=== PATIENT | female | born 1950 | race Caucasian/White ===

== ENCOUNTER 2017-08-16 13:43 | Emergency (ER) | payer MEDICARE, OTHER ==
[2017-08-16] MEDS ORDERED: Aspirin 81 MG Tab.Chew PO ONE (13:59)
[2017-08-16] MEDS ORDERED: Nitroglycerin 0.4 MG Tab.SL SL ONE (14:00)
--- NOTE | 2017-08-16 14:21 | EDM.PDOC ---
ED HPI GENERAL MEDICAL PROBLEM - General Stated Complaint: CHEST PAIN Time Seen by Provider: 08/16/17 13:45 Source of Information: Reports: Patient History Limitations: Reports: No Limitations - History of Present Illness INITIAL COMMENTS - FREE TEXT/NARRATIVE: c/o SSCP very poor historian, most questions needed to be asked 2-3 times, pt would often still not answer the question or give an indifferent, indirect or evasive answer pt reports she has had CP that she calls "angina" 2x/m x 1y, she had a stent of RCA 05/05, last saw creative art therapist 3m ago at time of stent, last saw PCP Dayanara Vasquez 2m ago, has apt with another creative art therapist in 2m had mid substernal ache in chest for 1h last night prior to going to bed, says she has NTG in her pocket but has never taken any, had no CP when she awoke at 04:30, did have some vague nonspecific mid SSCP on arrival at cardiac rehab today, got worse after 15 min, pain up to 8/10 "a big boy", now 2-08/26, did not get NTG at rehab, has L eye pain but denies other sxs, no n/v, no f/c/d goes to CV rehab for 45 min 2x/wk, not previously had pain this intense cath report 07-15-16 from [facility] shows 80% stenosis dominant RCA with nonobstructive disease in Cx and LAD, balloon angioplasty and stent done of RCA also with L renal artery stenosis with gradient of "only about 10 or 15 mm" which Dr Sinclair thought could be managed conservatively also a 3-3.5 cm distal AAA also 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 states she smoked 2 ppd x 30y, now smokes 6 cigs/d lives alone CV rehab report from today indicates 1/10 midsternal ache that started last night and comes and goes, resolved with exercise on stationary bike, pt started on Biostep and then had 6/10 sharp midsternal CP after 19 minutes, dec'd to 3/ 10 with rest, BP 126/58, pt then sent to ED EKG here shows SR 83, borderline QTc 503 that is old, no acute ST changes, no strain, no hypertrophy CxR, 1 view, was unremarkable, no infiltrates or effusions, normal inflation despite 60 pack yrs smoking mid chest Pain Score (Numeric/FACES): 2 - Related Data Allergies Allergy/AdvReac Type Severity Reaction Status Date / Time Penicillins Allergy Severe Chest Verified 08/16/17 14:06 Presssure morphine Allergy Bronchospas Verified 08/16/17 14:06 ms Home Meds: Home Meds Aspirin 81 mg PO DAILY 08/16/17 [History] Carvedilol 6.25 mg PO BID 08/16/17 [History] Clopidogrel [Plavix] 75 mg PO DAILY 08/16/17 [History] Cyanocobalamin (Vitamin B-12) [B-12] 500 mcg PO DAILY 08/16/17 [History] Isosorbide Mononitrate [Isosorbide Mononitrate ER] 30 mg PO DAILY #30 tab.sr.24h 08/16/17 [Rx] Nitroglycerin 0.4 mg SL ASDIRECTED PRN 08/16/17 [History] amLODIPine Besylate [Amlodipine Besylate] 10 mg PO DAILY 08/16/17 [History] atorvaSTATin [Lipitor] 80 mg PO BEDTIME 08/16/17 [History] ED ROS GENERAL - Review of Systems Review Of Systems: See Below Constitutional: Reports: No Symptoms HEENT: Reports: No Symptoms Respiratory: Reports: No Symptoms. Denies: Shortness of Breath Cardiovascular: Reports: Chest Pain. Denies: Edema, Lightheadedness Endocrine: Reports: No Symptoms GI/Abdominal: Reports: No Symptoms. Denies: Nausea, Vomiting : Reports: No Symptoms Musculoskeletal: Reports: No Symptoms Skin: Reports: No Symptoms Neurological: Reports: No Symptoms Psychiatric: Reports: No Symptoms Hematologic/Lymphatic: Reports: No Symptoms Immunologic: Reports: No Symptoms ED EXAM, GENERAL - Physical Exam Exam: See Below Exam Limited By: No Limitations General Appearance: Alert, WD/WN, No Apparent Distress, Other (alert, somewhat morose although pleasant enough, NAD, nonill, shook my hand) Eye Exam: Bilateral Eye: Normal Inspection Ears: Normal External Exam Nose: Normal Inspection, Normal Mucosa, No Blood Throat/Mouth: Normal Inspection, Normal Lips, Normal Teeth, Normal Gums, Normal Oropharynx, Normal Voice, No Airway Compromise Head: Atraumatic, Normocephalic Neck: Normal Inspection, Supple, Non-Tender, Full Range of Motion. No: Carotid Bruit, Lymphadenopathy (R), Lymphadenopathy (L) Respiratory/Chest: No Respiratory Distress, Lungs Clear, Normal Breath Sounds, No Accessory Muscle Use, Chest Non-Tender Cardiovascular: Regular Rate, Rhythm, No Edema, No Gallop, No JVD, No Murmur, No Rub, Other (distant, no murmur appreciated, quiet precordium) GI/Abdominal: Normal Bowel Sounds, Soft, Non-Tender, No Organomegaly, No Distention, No Abnormal Bruit, No Mass Back Exam: Normal Inspection Extremities: Normal Inspection, Normal Range of Motion, Non-Tender, No Pedal Edema, Normal Capillary Refill, Other (no edema, nl turgor) Neurological: Alert, Oriented, CN II-XII Intact, Normal Cognition, No Motor/ Sensory Deficits Skin Exam: Warm, Dry, Intact, Normal Color, No Rash Lymphatic: No Adenopathy Course - Vital Signs Last Recorded V/S: Last Vital Signs Temp 36.7 C 08/16/17 13:45 Pulse 90 08/16/17 13:45 Resp 16 08/16/17 13:45 BP 135/76 08/16/17 14:08 Pulse Ox 96 08/16/17 13:45 - Orders/Labs/Meds Orders: Active Orders 24 hr Category Date Time Status Ang Chest [CT] Stat Exams 08/16/17 14:56 Taken Chest 1V Frontal [CR] Stat Exams 08/16/17 14:04 Ordered Sodium Chloride 0.9% [Saline Flush] Med 08/16/17 15:07 Active 10 ml FLUSH ASDIRECTED PRN Saline Lock Insert [OM.PC] Routine Oth 08/16/17 15:07 Ordered EKG 12 Lead [EK] Routine Ther 08/16/17 14:04 Ordered Medication Orders Sodium Chloride (Saline Flush) 10 ml FLUSH ASDIRECTED PRN PRN Reason: Keep Vein Open Last Admin: 08/16/17 15:10 Dose: 10 ml Labs: Laboratory Tests 08/16/17 08/16/17 08/16/17 Range/Units 14:15 14:15 14:15 WBC 6.3 (4.5-12.0) X10-3/uL RBC 4.25 (3.23-5.20) x10(6)uL Hgb 12.6 (11.5-15.5) g/dL Hct 37.7 (30.0-51.3) % MCV 88.5 (80-96) fL MCH 29.6 (27.7-33.6) pg MCHC 33.4 (32.2-35.4) g/dL RDW 12.7 (11.5-15.5) % Plt Count 251 (125-369) X10(3)uL MPV 8.8 (7.4-10.4) fL Neut % (Auto) 55.6 (46-82) % Lymph % (Auto) 36.7 (13-37) % [place] % (Auto) 4.9 (4-12) % Eos % (Auto) 2 (1.0-5.0) % Baso % (Auto) 1 (0-2) % Neut # (Auto) 3.6 (1.6-8.3) # Lymph # (Auto) 2.3 (0.6-5.0) # [place] # (Auto) 0.3 (0.0-1.3) # Eos # (Auto) 0.1 (0.0-0.8) # Baso # (Auto) 0.0 (0.0-0.2) # D-Dimer, Quantitative 667 H (100-400) ng/mL Sodium 145 (135-145) mmol/L Potassium 3.6 (3.5-5.3) mmol/L Chloride 107 (100-110) mmol/L Carbon Dioxide 27 (21-32) mmol/L BUN 12 (7-18) mg/dL Creatinine 0.8 (0.55-1.02) mg/dL Est Cr Clr Drug Dosing 53.23 mL/min Estimated GFR (MDRD) > 60 (>60) BUN/Creatinine Ratio 15.0 (9-20) Glucose 103 (80-116) mg/dL Calcium 9.1 (8.6-10.2) mg/dL Magnesium 1.9 (1.8-2.5) mg/dL Total Bilirubin 0.4 (0.1-1.3) mg/dL AST 18 (5-25) IU/L ALT 26 (12-36) U/L Alkaline Phosphatase 80 (56-112) IU/L Troponin I (<0.017-0.056) ng/mL C-Reactive Protein (0.5-0.9) mg/dL NT-Pro-B Natriuret Pep (<=125) pg/mL Total Protein 7.3 (6.0-8.0) g/dL Albumin 3.6 (3.2-4.6) g/dL Globulin 3.7 g/dL Albumin/Globulin Ratio 1.0 / Range/Units 14:15 WBC (4.5-12.0) X10-3/uL RBC (3.23-5.20) x10(6)uL Hgb (11.5-15.5) g/dL Hct (30.0-51.3) % MCV (80-96) fL MCH (27.7-33.6) pg MCHC (32.2-35.4) g/dL RDW (11.5-15.5) % Plt Count (125-369) X10(3)uL MPV (7.4-10.4) fL Neut % (Auto) (46-82) % Lymph % (Auto) (13-37) % [place] % (Auto) (4-12) % Eos % (Auto) (1.0-5.0) % Baso % (Auto) (0-2) % Neut # (Auto) (1.6-8.3) # Lymph # (Auto) (0.6-5.0) # [place] # (Auto) (0.0-1.3) # Eos # (Auto) (0.0-0.8) # Baso # (Auto) (0.0-0.2) # D-Dimer, Quantitative (100-400) ng/mL Sodium (135-145) mmol/L Potassium (3.5-5.3) mmol/L Chloride (100-110) mmol/L Carbon Dioxide (21-32) mmol/L BUN (7-18) mg/dL Creatinine (0.55-1.02) mg/dL Est Cr Clr Drug Dosing mL/min Estimated GFR (MDRD) (>60) BUN/Creatinine Ratio (9-20) Glucose (80-116) mg/dL Calcium (8.6-10.2) mg/dL Magnesium (1.8-2.5) mg/dL Total Bilirubin (0.1-1.3) mg/dL AST (5-25) IU/L ALT (12-36) U/L Alkaline Phosphatase (56-112) IU/L Troponin I < 0.017 L (<0.017-0.056) ng/mL C-Reactive Protein < 0.2 L (0.5-0.9) mg/dL NT-Pro-B Natriuret Pep 124 (<=125) pg/mL Total Protein (6.0-8.0) g/dL Albumin (3.2-4.6) g/dL Globulin g/dL Albumin/Globulin Ratio Meds: Medications Generic Name Dose Route Start Last Admin Trade Name Freq PRN Reason Stop Dose Admin Sodium Chloride 10 ml 08/16/17 15:07 08/16/17 15:10 Saline Flush FLUSH 10 ml ASDIRECTED PRN Administration Keep Vein Open Discontinued Medications Generic Name Dose Route Start Last Admin Trade Name Freq PRN Reason Stop Dose Admin Aspirin 324 mg 08/16/17 13:59 08/16/17 14:07 Aspirin PO 08/16/17 14:00 324 mg ONETIME ONE Administration Al Hydroxide/Mg Hydroxide 30 0 ml 08/16/17 14:27 08/16/17 14:32 ml/ Lidocaine HCl 15 ml PO 08/16/17 14:28 15 ml ONETIME ONE Administration Iopamidol 100 ml 08/16/17 15:05 08/16/17 15:22 Isovue-370 (76%) IV 08/16/17 15:06 100 ml . DIRECTED ONE Administration Nitroglycerin 0.4 mg 08/16/17 14:00 08/16/17 14:08 Nitrostat SL 08/16/17 14:01 0.4 mg ONETIME ONE Administration - Re-Assessments/Exams Free Text/Narrative Re-Assessment/Exam: 08/16/17 16:29 d-dimer inc'd 667, yet chest CTA neg, other labs negative, her vague chronic nonexertional mild CP is nonspecific and almost certainly is not cardiac (no change with NTG SL, no change with GI cocktail) however her more intense sharp pain for 2-3 minutes with exertion that resolved with rest is suspicious for angina pt does not want to be admitted to hospital, nor is there additional benefit given the very brief duration of the pain will add Imdur 30 mg daily while decreasing amlodipine from 10 mg daily to 5 mg daily pt did have borderline BP here, initial 128/56, then 95/77 after NTG SL, then 131/69 at time of d/c, given the increase in pulse pressure, she would likely do better on the lower dose of amlodipine PCP Dayanara Vasquez called, yet not in office today, I spoke with her colleague Alvin Clark who will see Dayanara in 1h and will pass along the message, will plan for f/u with Dayanara in 1-2d to recheck her BP and to possibly move up her appointment with cardiology pt knows to come back to ED if she has additional sxs Departure - Departure Time of Disposition: 16:34 Disposition: Home, Self-Care 01 Condition: Good Clinical Impression: Angina of effort, Current smoker, Elevated d-dimer Prescriptions: Isosorbide Mononitrate [Isosorbide Mononitrate ER] 30 mg PO DAILY #30 tab.sr.24h Instructions: Angina Pectoris Referrals: Dayanara Vasquez, MANAGEMENT PLANNER [Primary Care Provider] - Additional Instructions: Continue current meds except for amlodipine. Decrease amlodipine from 10 mg 1 tab daily to 5 mg 1/2 tab daily. Add isosorbide mononitrate 30 mg 1 tab daily, which is a long acting version of nitroglycerin and helps with circulation to the heart. See Dayanara Vasquez in the next 1-2 days. If you have the more intense chest pain, sit and rest. Take a nitroglycerin under the tongue if you still are having the pain after 2-3 minutes and then come back to the ED. Do not resume cardiac rehab until cleared by your doctor. Record your blood pressure 2 times a day and take them with you to your appointment with Dayanara. Call your Physician or Return to Emergency Department if: * Your condition worsens in any way. * You develop fever greater than 100.4. * You have vomitting that does not stop with medications. * You have pain that is not controlled with medications. - My Orders Last 24 Hours: My Active Orders 08/16/17 14:04 Chest 1V Frontal [CR] Stat EKG 12 Lead [EK] Routine 08/16/17 14:56 Ang Chest [CT] Stat 08/16/17 15:07 Sodium Chloride 0.9% [Saline Flush] 10 ml FLUSH ASDIRECTED PRN Saline Lock Insert [OM.PC] Routine - Assessment/Plan Last 24 Hours: My Active Orders 08/16/17 14:04 Chest 1V Frontal [CR] Stat EKG 12 Lead [EK] Routine 08/16/17 14:56 Ang Chest [CT] Stat 08/16/17 15:07 Sodium Chloride 0.9% [Saline Flush] 10 ml FLUSH ASDIRECTED PRN Saline Lock Insert [OM.PC] Routine
[2017-08-16] MEDS ORDERED: Alum Hydroxide/Mag Hydroxide 30 ML, Lidocaine 2% 15 ML PO ONE ×2 (14:27)
[2017-08-16] MEDS ORDERED: Iopamidol 755 Mg/ML 100 ML Bottle IV ONE (15:05)
[2017-08-16] MEDS ORDERED: Sodium Chloride 0.9% 10 ML Syringe FLUSH PRN (15:07)
--- NOTE | 2017-08-17 07:28 | CT ---
INDICATION: Mid chest pain, elevated D-dimer greater than 600. CT ANGIOGRAPHY OF CHEST WITH CONTRAST: Spiral 1.25 mm axial sections were obtained through the chest with 100 mL Isovue 370 at 2.8 mL/second with sagittal and coronal reconstructions 08/16/2017. No comparisons were available. Total exam DLP = 801.66 mGy-cm. An active infiltrate or effusion was not definitely identified. Some heavy markings are noted at the left lung base, most likely hydrostatic. No evidence of pulmonary embolus could be identified. Mediastinal lymphadenopathy is mild and nonspecific. Calcifications are noted in the brachiocephalic vessels and aorta, as well as coronary arteries. The heart did not appear grossly enlarged. The upper abdomen was grossly normal. IMPRESSION: No evidence of pulmonary emboli or definite acute process. Report was called to Dr. Lucas at 1559 hours on 08/16/2017. MEL
--- NOTE | 2017-08-18 07:47 | CR ---
INDICATION: Chest pain. CHEST: An AP portable upright view of the chest was obtained 08/16/2017 - no comparisons. The heart is normal in size and shape. The aorta is tortuous with minimal calcification in the arch. Overlying EKG leads are noted. An active infiltrate or effusion was not identified. Evidence of exogenous obesity is noted. IMPRESSION: No acute process. MTDD
== END 2017-08-16 16:46 | disposition home or self-care (01) ==
LOC: FB.ED 13:43
DX: I25.110 Atherosclerotic heart disease of native coronary artery with unstable angina pectoris (principal); R79.1 Abnormal coagulation profile; F17.210 Nicotine dependence, cigarettes, uncomplicated; Z95.5 Presence of coronary angioplasty implant and graft; Z79.899 Other long term (current) drug therapy; Z79.82 Long term (current) use of aspirin; Z88.0 Allergy status to penicillin; Z88.5 Allergy status to narcotic agent
CPT/HCPCS: 36415; 71045; 71275; 80053; 83735; 83880; 84484; 85025; 85379; 86140; 93005; 99285; A9270; J7050; Q9967; 99284

== ENCOUNTER 2025-04-01 08:15 | Day surgery (SDC) | payer MEDICARE, OTHER ==
[~2025-04-01 08:15] MED LIST: Lactated Ringers 1,000 ML IV PRN
[2025-04-01] MEDS ORDERED: fentaNYL 100 MCG/2 ML SDV IV ONE (08:16)
[2025-04-01] MEDS ORDERED: Midazolam 1 MG/ML 2 ML SDV IV ONE (08:16)
[2025-04-01] MEDS ORDERED: Sodium Chloride 0.9% 10 ML Syringe IV ONE (08:16)
[2025-04-01] MEDS: Sodium Chloride 0.9% 10 ML Syringe FLUSH PRN (08:58)
[2025-04-01] MEDS: acetaZOLAMIDE 500 MG Cap.ER PO ONE (10:24)
== END 2025-04-01 10:39 | disposition home or self-care (01) ==
LOC: FB.SDS 08:15
PROVIDERS: ATTEND Ophthalmology
DX: H26.9 Unspecified cataract (principal); I25.118 Atherosclerotic heart disease of native coronary artery with other forms of angina pectoris; I10 Essential (primary) hypertension; J44.9 Chronic obstructive pulmonary disease, unspecified; E78.5 Hyperlipidemia, unspecified; Z88.5 Allergy status to narcotic agent; Z88.6 Allergy status to analgesic agent; Z88.0 Allergy status to penicillin; Z79.899 Other long term (current) drug therapy
CPT/HCPCS: 00142; 99100; A9270-GY; J2250; J3010; V2632

== ENCOUNTER 2025-04-15 08:47 | Day surgery (SDC) | payer MEDICARE, OTHER ==
[2025-04-15] MEDS ORDERED: Midazolam 1 MG/ML 2 ML SDV IV ONE (08:48)
[2025-04-15] MEDS ORDERED: fentaNYL 100 MCG/2 ML SDV IV ONE (08:48)
[2025-04-15] MEDS: Sodium Chloride 0.9% 10 ML Syringe FLUSH PRN (09:26)
[2025-04-15] MEDS: Lactated Ringers 1,000 ML IV PRN (09:31)
[2025-04-15] MEDS: acetaZOLAMIDE 500 MG Cap.ER PO ONE (10:38)
== END 2025-04-15 10:50 ==
LOC: FB.SDS 08:47
PROVIDERS: ATTEND Ophthalmology
DX: H25.812 Combined forms of age-related cataract, left eye (principal); I10 Essential (primary) hypertension; Z88.5 Allergy status to narcotic agent; Z88.8 Allergy status to other drugs, medicaments and biological substances; Z88.0 Allergy status to penicillin; Z79.01 Long term (current) use of anticoagulants; Z79.899 Other long term (current) drug therapy
CPT/HCPCS: 00142; 66984; 99100; A9270; J2250; J3010; J7120; V2632